=== PATIENT | female | born 1930 | race Caucasian/White ===

== ENCOUNTER 2021-01-20 17:12 | Observation (INO) | payer OTHER ==
[~2021-01-20] VITALS: Ht 160 cm; Wt 57.2 kg
--- NOTE | ~2021-01-20 | EMS ---
[address] [address] EMS Patient Care Report Name: POLLY DEVLIN Room #: PRE DINH Casillas#: [id number] Admission: Attend Phys: Discharge: Date of : [birth year] Report #: [id number] THIS REPORT FOR: //name// Report Transmitted: 01/20/2021 16:34 EMS Care Summary [facility] MED-ACT Incident [id number] @ 01/20/2021 16:34 Incident Location [address] [place] [address] Patient POLLY DEVLIN Female, 89 Years 1930 Patient Address [address] [place] [address] Patient History Hypertension (HTN),Atrial Fibrillation, Patient Allergies No known allergies, Patient Medications Eliquis, Metoprolol, Chief Complaint CVA Disposition Transported No Lights/[place] Dispatch Reason Stroke/CVA Transported To [facility] Narrative History-Pt was sitting downstairs and called out for her . When the found the pt the pt had garbled speech and he couldn't understand her. 911 was called. Pts last seen normal was at 17:00. Pt states that she has gone off of her eliquis for surgery that is going to happen this week. Pt states [address] [address] EMS Patient Care Report Name: POLLY DEVLIN Room #: PRE DINH Casillas#: [id number] Admission: Attend Phys: Discharge: Date of : [birth year] Report #: [id number] that she normally is in Afib. Assessment: Neuros: normal speech, GCS 15, A/O times 4. HEENT: Head: R sided facial droop on rest and normal on smile. Eyes: LARRY, neg blurred or double vision, Throat: patent, pt denies trouble swallowing. Chest: neg chest pain or SOB, CBBS. Abdomen: soft, non tender, neg masses or pulsations, Pelvis/GI/: pt states to normal urination and BM's. Extremities: neg arm drift, +CMS. Skin: pink, dry, warm. Back: neg pain Rendered Tx- Vitals taken and monitored, EKG, 12 lead, bG, infrared temp, IV established, [place] stroke was positive for facial droop, LVO score 1, Code stroke. Destination-Pt was sitting in a chair in the living room upon our arrival in the care of CFD2 and family. Pt was able to stand and sit on the cot where she was secured with 3 straps and shoulder straps then moved to the ambulance. En route pt was put in a semi-fowlers position @ 30 degrees. Pt was transported to the closest stroke center which was [facility]. Pt was taken to room 4 where she was moved to the bed via sheet drag and care was transferred to staff. Initial Vitals @16:58P: 89,SpO2: 100,TX Suspected: false @17:08P: 90,R: 14,BP: 161/100,GCS: 15,SpO2: 98,Revised Trauma: 12, @17:04P: 83,R: 14,BP: 159/100,Pain: 0/10,GCS: 15,SpO2: 98,Revised Trauma: 12, @16:59P: 94,R: 16,BP: 158/93,GCS: 15,SpO2: 99,Revised Trauma: 12, @PTAP: 98,R: 14,BP: 154/100,GCS: 15,Glucose: 158,SpO2: 99,Revised Trauma: 12,TX Suspected: false @16:54P: 105,R: 14,BP: 174/119,Pain: 0/10,GCS: 15,Temp: 98.3F,SpO2: 99,Revised Trauma: 12, Impression Stroke Procedures @16:53 IV Therapy - Saline Lock 10cc (18 ga) Site: Antecubital-Right Response: UnchangedSucceeded @16:56 12-Lead ECG @16:58 12-Lead ECG Timeline PHYS THER,BP: 154/100 M,PULSE: 98,RR: 14 R,SPO2: 99 Ox,ETCO2: ,B,PAIN: ,GCS: 15, 16:32,Call Received 16:32,Psap Call 16:34,Dispatched 16:35,En Route 16:42,On Scene [address] [address] EMS Patient Care Report Name: POLLY DEVLIN Room #: PRE M.R.#: [id number] Admission: Attend Phys: Discharge: Date of : [birth year] Report #: [id number] 16:43,At Patient 16:53,IV Therapy - Saline Lock 10cc 18 ga Site: Antecubital-Right,Response: UnchangedSucceeded, 16:54,BP: 174/119 M,PULSE: 105,RR: 14 R,SPO2: 99 Ox,ETCO2: ,BG: ,PAIN: 0,GCS: 15, 16:56,12-Lead ECG, 16:58,12-Lead ECG, 16:58,BP: / M,PULSE: 89,RR: R,SPO2: 100 Ox,ETCO2: ,BG: ,PAIN: ,GCS: , 16:59,BP: 158/93 M,PULSE: 94,RR: 16 R,SPO2: 99 Ox,ETCO2: ,BG: ,PAIN: ,GCS: 15, 17:00,Depart Scene 17:04,BP: 159/100 M,PULSE: 83,RR: 14 R,SPO2: 98 Ox,ETCO2: ,BG: ,PAIN: 0,GCS: 15, 17:08,BP: 161/100 M,PULSE: 90,RR: 14 R,SPO2: 98 Ox,ETCO2: ,BG: ,PAIN: ,GCS: 15, 17:15,At Destination 17:33,Call Closed Disclaimer v1.1 Copyright 2020 [employer] This EMS Care Summary contains data elements from the applicable legal record (which may be displayed differently). It is designed to provide pertinent information for the following purposes: continuity of care, clinical quality, and state data reporting. The complete legal record is available to ED staff and administrators of the receiving hospital in [employer] Patient Tracker. All data is provided "as is."
--- NOTE | ~2021-01-20 | HC ---
[facility] [place] [address] CONSULTATION Name: POLLY DEVLIN Room #: 212-P ADM IN M.R.#: [id number] Admission: 01/20/21 Attend Phys: Josias Garcia MD Discharge: Date of : [birth year] Report #: [id number] THIS REPORT FOR: cc: Brenda Sherwood MD, Jennifer MD Khosla,Maximino Wu MD ~ DATE OF SERVICE: 01/21/2021 HISTORY OF PRESENT ILLNESS: This is an 89-year-old female patient on whom a consultation was requested for the possibility of TIA. There is a confusion about this consult. This patient came to Emergency Room with a facial droop as well as some speech difficulty. [facility] was consulted and there is a note from them in the chart. I reviewed the Emergency Room physician's note and that he spoke to Dr. Grant. Nobody spoke to me and only [facility] was consulted. In fact, I talked to that doctor about this situation to see if that is an autopopulated note or what is happening there. He indicated he will take care of it in future. In any event, this patient was not consulted and I got a routine consult on this patient to continue followup care and acute care was done by [facility]. It looks like the patient's symptoms quickly resolved and to me it looks like she still has some hesitancy in speech, but she does not feel so and she feels she is back to her baseline. This patient was going to have a knee surgery. Her anticoagulation was held. She said she did not have any anticoagulation on Tuesday and Tuesday, then she had this episode and after that anticoagulation was started first on 2.5 b.i.d. of Eliquis and subsequently on 5 mg b.i.d. of Eliquis. In the meantime, multiple imaging studies were done. I reviewed the images. 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 This is an acute stroke. It looks like from the record in Emergency Room, a CT angiogram of the head and neck was recommended. I do not see any films or report of that. I suspect it was not done because of the patient is ALLERGIC TO IODINE, but I do not know. In any event, the patient is doing well and she thinks her symptoms have resolved, but I think there is some speech hesitancy. REVIEW OF SYSTEMS: Positive for chronic atrial fibrillation. She is on chronic anticoagulation. It was held for 2 days and third day she had a stroke. She does have a history of hypertension, hypothyroidism, hyperlipidemia. Rest of the 14-point review of system appeared to be noncontributory. PAST MEDICAL HISTORY: Negative for stroke. FAMILY HISTORY: Negative for early age stroke. [address] [address] CONSULTATION Name: POLLY DEVLIN Room #: 212-P ADM IN M.R.#: [id number] Admission: 01/20/21 Attend Phys: Josias Garcia MD Discharge: Date of : [birth year] Report #: [id number] SOCIAL HISTORY: She is a former smoker and she drinks 1 alcoholic drink every night. PHYSICAL EXAMINATION: VITAL SIGNS: Blood pressure is 152/104, respirations 18, pulse is 91, temperature is 97.5. NEUROLOGIC: She is alert and responsive. She is oriented. She can tell me what month and what day it is. She knows what hospital she is in and she knew the president. She was somewhat confused about the duration of her anticoagulation and how long she has been diagnosed with atrial fibrillation. Cranial nerve examination to me it looks mostly unremarkable. There may be slight facial droop, but her strength in the upper and lower extremities is symmetrical, so his reflexes. The position sense looks intact. Tone looks symmetrical. I could not look at the fundus. I did not make the patient walk. She does not appear to be ataxic. She is a well-developed individual. There is no edema. HEENT: Her hearing and vision looks adequate. NECK: She had prior thyroid problem, but does not appear she had a thyroid mass or carotid bruits. HEART: Her heart examination shows atrial fibrillation. LUNGS: No respiratory difficulty. LABORATORY DATA: GFR is 79. MRI films were reviewed and they are summarized above. There is no abnormality of the intracranial circulation on MRA. 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 It is unusual to have stroke that fast, but that will indicate pretty significant hypercoagulable state in this patient. RECOMMENDATIONS: I discussed with the patient her options in that regard. It looks like she had a pretty significant allergic reaction to the dye. We can pretreat her, but it may be desirable to have a carotid Doppler first. I ordered a carotid Doppler. If she has further spells, she will call us. I talked to the nurse and they are going to give her dose of anticoagulation pretty soon. She has a very extensive chronic disease on the brain, that make her high risk for any therapy including TPA if she needs that. She was not given any TPA in the Emergency Room and I am going to order an echocardiogram and I will suggest an opinion from Cardiology to see what they will plan to do in this patient in case she needs surgery or if she wants to proceed with the surgery, that is going to be a high risk process and I suspect if she really wants to proceed with the surgery, she may have to be on heparin, which need to be discontinued and then restarted as soon as possible after the surgery, but it is going to be [facility] [address] [place] [address] CONSULTATION Name: POLLY DEVLIN Room #: 212-P ADM IN .R.#: [id number] Admission: 01/20/21 Attend Phys: Josias Garcia MD Discharge: Date of : [birth year] Report #: [id number] somewhat of her decision if she wants to take that risk or wants to not have surgery. She is going to be on a high risk for complications from anticoagulation including heparin or Lovenox if it is started because of such an extensive disease in the brain. Thank you very much for this referral. If you have any questions, please feel free to contact me. By: [phone] Maximino Grant MD /jose
[2021-01-20 17:24] VITALS: BP 178/96
[2021-01-20 17:50] LABS: ABSOLUTE NEUTROPHILS 4.1 thou/uL (1.4-8.2); BASOPHILS 1.1 % (0.0-2.0); EOSINOPHILS 1.8 % (0.0-3.0); HEMATOCRIT 44.4 % (37.0-47.0); HEMOGLOBIN 14.2 gm/dL (12.0-15.0); LYMPHOCYTES 23.8 % (24.0-44.0); MCH 32.9 pg (26.0-34.0); MCHC 32.1 g/dL (28.0-37.0); MCV 102.5 fL (80.0-100.0); MONOCYTES 15.5 % (1.0-8.0); PLATELET COUNT 210 thou/uL (150-400); POLYS 57.8 % (36.0-66.0); RBC 4.33 mil/uL (4.20-5.00); RDW 14.6 % (10.5-14.5)
[2021-01-20 17:58] LABS: CALCIUM 9.3 mg/dL (8.5-10.1); CREATININE 0.9 mg/dL (0.6-1.0); POTASSIUM 4.5 mmol/L (3.5-5.1)
[2021-01-20] MEDS ORDERED: PRAVACHOL40 MG PO (20:38)
[2021-01-20] MEDS ORDERED: ALENDRONATE SOD70 MG PO (20:39)
[2021-01-20] MEDS ORDERED: METOPROLOL SUCC50 MG PO (20:39)
[2021-01-20] MEDS ORDERED: TRIAMTERENE-HC1 EAC2 PO (20:39)
[2021-01-20 21:18] VITALS: BP 169/91
[2021-01-20 21:29] VITALS: BP 154/94
[2021-01-20 21:49] VITALS: BP 157/83
--- NOTE | 2021-01-20 22:30 | NUR ---
PT IS ALERT AND OREINTED X3. LUNGS ARE CLEAR. SPOUSE BROUGHT TO EMS FOR STROKE LIKE SYMPTOMS. FELT WEAK AND COULDNT GET OFF TOILET. NIH IS ZERO CURRENTLY NOW. NO FACIAL DROOPING NOTED OR DRIFTING NOTED.SPEECH IS CLEAR. ADMISSION DONE. PT HAD SOME HOME MEDS TAKEN TO PHARMACY. FALL CONTRACT SIGNED. CALL LIGHT WITHIN REACH IF NEEDS ASSISTANCE PER NURSING. DENIES ANY PAIN ISSUES.
[2021-01-20 23:52] VITALS: BP 145/86
--- NOTE | 2021-01-21 03:33 | NUR ---
NIH SCALE A 0 WILL CALL ROUTINE CONSULT NEUROLOGY IN AM ORDERED. PT SLEEPING NO COMPLAINTS NOTED. ONGOING NURSING CARE . CALL LIGHT WITHIN REACH IF NEEDS ASSISTANCE PER NURSING.
[2021-01-21 03:57] LABS: ANION GAP 10 mmol/L (7-16); BUN 17 mg/dL (7-18); CALCIUM 8.8 mg/dL (8.5-10.1); CHLORIDE 105 mmol/L (98-107); CHOLESTEROL 169 mg/dL (<200); CO2 27 mmol/L (21-32); CREATININE 0.7 mg/dL (0.6-1.0); GLUCOSE 108 mg/dL (74-106); HDL CHOLESTEROL 54 mg/dL (>40); LDL CHOLESTEROL 102 mg/dL (<100); POTASSIUM 3.7 mmol/L (3.5-5.1); SODIUM 142 mmol/L (136-145); TC:HDL 3.1 Ratio (Not establshd); TRIGLYCERIDE 67 mg/dL (<150); VLDL 13 mg/dL (<40)
[2021-01-21 04:22] VITALS: BP 128/86
[2021-01-21 04:25] LABS: SERUM ASSESSMENT Clear
[2021-01-21 07:20] VITALS: BP 138/74
--- NOTE | 2021-01-21 08:48 | EKG ---
[address] [employer] [place] [address] ELECTROCARDIOGRAM REPORT Name: CRIS DEVLINITH Room #: [facility]- ADM IN M.R.#: [id number] Admission: 01/20/21 Attend Phys: Josias Garcia MD Discharge: Date of : [birth year] Report #: [id number] [facility] ED Test Date: 2021-01-20 Test Time: 17:55:24 Pat Name: POLLY DEVLIN Department: Room: [facility] Gender: F Magazine Supervisor: radha : 1930 Requested By: Derrick Keating Order Number: [id number] MD: Kody Aguirre Measurements Intervals [place] Rate: 91 P: GA: QRS: 51 QRSD: 89 T: 50 QT: 368 QTc: 453 Interpretive Statements Atrial fibrillation Probable anteroseptal infarct, old No previous ECG available for comparison Electronically Signed On 01-21-2021 8:47:53 PIPEMAN by Kody Aguirre [email or web address] <ELECTRONICALLY SIGNED> By: Kody Aguirre MD, [facility] 01/21/21 0847 1755 1755 Kody Aguirre MD, FACC /EPI
--- NOTE | 2021-01-21 10:16 | NUR ---
DISCHARGED PATIENT. EXPLAINED DISCHARGE INSTRUCTIONS TO PATIENT AND DAUGHTER. DAUGHTER WAS HELPING TRANSLATE FOR PATIENT. HIGHLIGHTED AND EXPLAINED ALL UPCOMING APPOINTMENTS AND NEW, CHANGED MEDICATIONS. PT STATED HE UNDERSTOOD AND DENIED HAVING ANY ADDITIONAL QUESTIONS. PT WAS TAKING OFF UNIT VIA WHEEL CHAIR.
[2021-01-21 11:18] VITALS: BP 128/65
[2021-01-21 15:23] VITALS: BP 152/104
--- NOTE | 2021-01-21 19:19 | NUR ---
PT STATED SHE WAS HAVING GARBLED SPEECH WHILE SPEAKING WITH HER SPOUSE. THE SPEECH CLEARED UP PRIOR TO HER ALERTING NURSING STAFF. PT STATED THE GARBLED SPEECH DID NOT LAST VERY LONG. NIH WAS COMPLETED IMMEDIATELY AND SCORED 0. DR. TOMLINSON WAS NOTIFIED. MEDICATIONS WERE CHANGED. WILL CONTINUE TO MONITOR.
[2021-01-21 19:55] VITALS: BP 104/54; BP 139/69
[2021-01-22 04:18] VITALS: BP 150/89
--- NOTE | 2021-01-22 04:44 | NUR ---
RECEIVED PATIENT AT 1900H.ON ROOM AIR BREATHING SPONTANEOUSLY.NOT IN PAIN OR DISTRESS.NIH DONE SCORED-0.ALL NEEDS ATTENDED.TO CONTINOUSLY MONITOR.
[2021-01-22 07:20] VITALS: BP 170/111
[2021-01-22 11:20] VITALS: BP 149/88
--- NOTE | 2021-01-22 12:10 | NUR ---
TOOK OVER CARE OF PATIENT AT 0700. PT RESTING IN BED AT THIS TIME. NIH SCALE COMPLETED WITH SCORE OF 0. PT AMBULATED WITH PHYSICAL THERAPY. PATIENT AXOX4. PATIENT ON ROOM AIR; DENIES SOA. PATIENT DENIES HEADACHE AND DIZZINESS. PATIENT DENIES CHEST PAIN. ASSESSMENTS CHARTED. WILL CONTINUE TO MONITOR. FALL PRECAUTIONS IN PLACE. PATIENT LEFT FOR STEFANO PROCEDURE AT 1200.
--- NOTE | 2021-01-22 13:36 | TEE ---
[facility] [place] [address] TRANSESOPHAGEAL ECHOCARDIOGRAM Name: POLLY DEVLIN Room #: 212-P ADM IN M.R.#: [id number] Admission: 01/20/21 Attend Phys: Josias Garcia MD Discharge: Date of : [birth year] Report #: [id number] THIS REPORT FOR: cc: Brenda Sherwood MD, Jennifer MD Santiago, Patrick MD [facility] ~ APPROVED REPORT Study performed: 01/22/2021 12:02:58 EXAM: Comprehensive 2D, Doppler, and color-flow Echocardiogram Patient Location: In-Patient Room #: [facility] Status: routine BSA: 1.57 HR: 109 bpm BP: 168/103 mmHg Other Information Study Quality: Good Indications CVA/TIA Echo Enhancing Agent Indication: Rule out Shunt Agent(s) / Amount(s) Used: Agitated Saline 7 cc Procedure After obtaining informed consent, patient underwent transesophageal echo in the [employer]. Type of Sedation : Conscious Sedation Sedation was administered by Nurse. Sedation start time: 1214 Case end Time: 1222 Sedation was achieved intravenously with: Versed (3mg) Fentanyl (75mcg) Transesophageal probe was inserted and advanced into esophagus without difficulty by Bernard Kwon MD. Echo enhancement indication: R/O Septal defect. Echo enhancement agent administered: Agitated Saline The STEFANO was performed without complications. Throughout the procedure, the blood pressure, pulse oximetry, cardiac rhythm, and rate were monitored. [facility] [address] [place] [address] TRANSESOPHAGEAL ECHOCARDIOGRAM Name: POLLY DEVLIN Room #: 212-P [facility] IN M.R.#: [id number] Admission: 01/20/21 Attend Phys: Marycarmen Singh Discharge: Date of : [birth year] Report #: [id number] The patient tolerated the procedure without adverse effects. Recovery from conscious sedation was uneventful and vital signs were stable. Left Ventricle The left ventricle is normal size. There is normal left ventricular wall thickness. Left ventricular systolic function is mild to moderately decreased. LVEF is 40%. Right Ventricle The right ventricle is normal size. The right ventricular systolic function is normal. Atria Left atrium is dilated. Injection of contrast documented no interatrial shunt. Right atrium is dilated. Aortic Valve The aortic valve is normal in structure. The Aortic valve is sclerotic. No aortic regurgitation is present. There is no aortic valvular stenosis. Mitral Valve The mitral valve is normal in structure. Mild mitral regurgitation. No evidence of mitral valve stenosis. Tricuspid Valve The tricuspid valve is normal in structure. Trace tricuspid regurgitation. Pulmonic Valve The pulmonary valve is normal in structure. There is no pulmonic valvular regurgitation. Great Vessels The aortic root is normal in size. Pericardium There is no pericardial effusion. <Conclusion> Indication TIA Consent was obtained Timeout was performed Esophageal probe was advanced without difficulty Left ventricle normal in size/wall thickness with mild global [facility] [address] [place] [address] TRANSESOPHAGEAL ECHOCARDIOGRAM Name: POLLY DEVLIN Room #: 212-P ADM IN M.R.#: [id number] Admission: 01/20/21 Attend Phys: Marycarmen Singh Discharge: Date of : [birth year] Report #: [id number] hypokinesis ejection fraction 45% Left atrial appendage no obvious mass or clot detected Mild biatrial enlargement Mildly calcified aortic valve but without stenosis Mild/central mitral valve insufficiency Trace tricuspid valve insufficiency No evidence of ASD/VSD by color flow/bubble study No pericardial effusion Normal aortic root size Minimal calcification throughout the aorta Patient tolerated the procedure well. <ELECTRONICALLY SIGNED> By: Bernard Kwon MD, FACC 01/22/211335 35 35 Bernard Kwon MD, FACC /INF
--- NOTE | 2021-01-22 14:45 | NUR ---
Met with patient who is to dc today with HH care ordered. Patient resides at home with spouse in split level home. She uses a walker at night if needed to use restroom. She reports she needs knee sx on left knee. She at times has difficult with steps. Verified address and PCP. Patient with no prference for HH agency and agreeable to [facility]. Faxed referral
[2021-01-22 14:52] VITALS: BP 149/88
[2021-01-22 14:54] VITALS: BP 149/88
--- NOTE | 2021-01-22 15:20 | NUR ---
going over discharge education with patient. pt denies any questions or concerns at this time. pt agreeable to discharge plan. discharged via wheelchair by nursing staff to personal vehicle.
== END 2021-01-22 15:41 | disposition home or self-care (01) ==
LOC: ER 17:12 → 2N 19:31 → EROBS 19:31 → 2N 21:32
PROVIDERS: Emergency Medicine; Nurse Practitioner Family; ADMIT Hospitalist; ATTEND Hospitalist
DX: I63.9 Cerebral infarction, unspecified (principal); Z20.822 Contact with and (suspected) exposure to COVID-19; I10 Essential (primary) hypertension; I48.20 Chronic atrial fibrillation, unspecified; E03.9 Hypothyroidism, unspecified; E78.5 Hyperlipidemia, unspecified; R29.810 Facial weakness; R47.01 Aphasia; Z79.01 Long term (current) use of anticoagulants; Z79.82 Long term (current) use of aspirin; Z79.899 Other long term (current) drug therapy
CPT/HCPCS: 10081